=== PATIENT | female | born 1970 | race American Indian/Alaskan Native ===

== ENCOUNTER 2018-01-01 09:57 | Outpatient (CLI) | payer OTHER ==
--- NOTE | 2018-01-01 10:47 | XRay Report ---
LUMBAR SPINE RADIOGRAPHS INDICATION: Low back pain. COMPARISON: None similar. FINDINGS: AP, lateral and oblique lumbar spine radiographs, 5 images demonstrate minimal levocurvature apex about L4-L5. No evidence of a pars defect. Lower lumbar facet arthropathy and slight vertebral body spurring. Otherwise normal vertebral body stature, alignment and disc heights. Lower thoracic spine degenerative changes as spurring incidentally noted. Nonobstructive bowel gas pattern. Intact SI joints. CONCLUSION: Lower thoracic and lower lumbar degenerative changes noted, as described. Please correlate. Thank you for the opportunity to participate in this patient's care.
== END 2018-01-01 09:58 | disposition home or self-care (01) ==
LOC: XRAY 09:57
PROVIDERS: ATTEND Orthopaedic Surgery
DX: M47.895 Other spondylosis, thoracolumbar region (principal); M12.88 Other specific arthropathies, not elsewhere classified, other specified site
CPT/HCPCS: 72110